=== PATIENT | female | born 2000 | race Caucasian/White ===

== ENCOUNTER 2023-01-10 18:37 | Emergency (ER) | payer OTHER, SELFPAY ==
[2023-01-10] VITALS (24 sets, daily range): BP systolic 112–123; BP diastolic 65–84; PULSE 85–124; RESP 18–20; TEMP 38.1–39; O2SAT 97–100; BMI 24.4
--- NOTE | 2023-01-10 18:50 | ED_ITS ---
HPI - Female Genitourinary General Time Seen by Provider: 18:50 Date Seen: 01/10/23 Chief complaint: Urogenital Problems, Female Stated complaint: Suspected kidney infection--fever, back pain Time Seen by Provider: 01/10/23 18:38 Source: patient, family and RN notes reviewed Mode of arrival: ambulatory Limitations: no limitations History of Present Illness HPI Narrative: Patient is a 22-year-old female accompanied by parents with concern of possible kidney infection/pyelonephritis. Patient had recent urinary tract infection and completed a 5 day course of Bactrim. She had dysuria, urinary frequency and urgency. By the end of the course of Bactrim, was still having the frequency urgency symptoms but the dysuria had gone away. She is at [employer], in pre season [employer]. She thought maybe she was just becoming overheated but noted today she was having some back pain, probably started yesterday. Fever maybe started after lunch. Her appetite has been diminished today but no vomiting, no nausea now. She has some lower abdominal pain and does go into the right flank area. Her mom is a physician and is present. She has had UTIs in the past that have responded to 3 day courses of Bactrim. Related Data Previous Rx's Medication Instructions Recorded ciprofloxacin HCl 500 mg tablet 500 mg PO BID #19 tabs 01/10/23 levofloxacin 500 mg tablet 500 mg PO DAILY #9 tabs 01/10/23 Allergies Allergy/AdvReac Type Severity Reaction Status Date / Time cefprozil [From Cefzil] Allergy Intermediate Rash Verified 01/10/23 19:16 Review of Systems Narrative: As per HPI. PFSH PFSH Social History Smoking Status: Never smoker Do you use any of these nicotine containing products: None Second hand tobacco smoke exposure: No How often do you have a drink containing alcohol: monthly or less AUDIT-C Alcohol total score: 1 Non-prescribed substance use: denies use service: No Exam Const: Vital Signs, click to edit/add: Vital Signs - 24 hr 01/10/23 18:45 01/10/23 18:57 01/10/23 19:38 Temperature 102.2 F H 102.2 F H Pulse Rate Pulse Rate [Pulse Oximeter] 124 H 111 H Respiratory Rate 18 20 Blood Pressure Blood Pressure [Ri ght Upper Arm] 119/74 123/84 Pulse Oximetry 97 100 Oxygen Delivery Me thod Room Air Room Air 01/10/23 19:57 01/10/23 19:58 01/10/23 20:00 Temperature 100.5 F H Pulse Rate 107 H 105 H Pulse Rate [Pulse Oximeter] Respiratory Rate Blood Pressure Blood Pressure [Ri ght Upper Arm] Pulse Oximetry 100 99 Oxygen Delivery Me thod 01/10/23 20:01 01/10/23 20:02 01/10/23 20:05 Temperature 100.5 F H Pulse Rate 106 H 105 H Pulse Rate [Pulse Oximeter] Respiratory Rate Blood Pressure 112/66 Blood Pressure [Ri ght Upper Arm] Pulse Oximetry 99 100 Oxygen Delivery Me thod 01/10/23 20:15 Temperature Pulse Rate 107 H Pulse Rate [Pulse Oximeter] Respiratory Rate Blood Pressure Blood Pressure [Ri ght Upper Arm] Pulse Oximetry 99 Oxygen Delivery Me thod 22-year-old female that is alert interac tive no apparent distress, able to speak in complete sentences. Very pleasant. Cheeks looked flushed but no rash noted. Pupils are equal and round, sclera clear, conjugate gaze. Neck is supple, no adenopathy noted. Lungs are clear with good air entry, no wheezing or crackles, no tachypnea noted. She has right CVA tenderness but no overlying skin changes. CV regular but fast, no murmur, normal S1 and S2, no S3 or S4. Abdomen is nondistended, normal bowel sounds, soft. Mild suprapubic tenderness with pain radiating up into the right flank area when palpating the suprapubic area. She has far right upper lateral abdominal pain without rebound or guarding. Skin is mina, note no rash on visualized areas. Documenting provider has reviewed patient's vital signs: yes Course Course Hospital Course: This patient is a 22-year-old female with fever in setting of recent urinary symptoms, right flank pain concerning for pyelonephritis. Will initiate an IV, give her L of fluids, plan on antibiotics and unfortunately she is allergic to Cefzil. Need to get full complement of labs including CBC and blood cultures. Discussed imaging with ultrasound versus CT with patient and her mom. They would like to proceed with CT imaging to ensure appropriate diagnosis and no other underlying pathology. We did discuss underlying risk of radiation with CT imaging. They understand would like to proceed. Confirm negative test as well. Urinalysis is already been collected, urine culture will be done. Will dose with 600 mg oral ibuprofen as she has not taken anything. Reevaluation(s) Time of Reevaluation #1: 20:16 Reevaluation #1: Just reviewed CT findings, normal white blood count with patient and her family. She has right pyelonephritis. CT report was given to mom whom did review it while I was there. She was able to eat and drink while here. We discussed medications. Given her cephalosporin allergy, fluoroquinolones with Cipro or Levaquin are what is next recommended for complicated UTI or pyelonephritis per up-to-date. They are aware of the risk of tendinopathy with this. Her mom had already looked this up, her mom understands the rationale for using this medicine however. With once a day dosing with Levaquin, will proceed with this. Of note, patient has the copper IUD. Time of Reevaluation #2: 20:39 Reevaluation #2: Did some research after I talked to them, question whether there might be increased tendinopathy associated with Levaquin versus Cipro. Mom thought there was not when I was in the room with them before. However, on further review of internet/nih, Cipro is increased risk of tendinitis over Levaquin but actual tendon rupture is shown to be increased with Levaquin. Will proceed with Cipro upon further discussion. The overall risk of tendon rupture with Cipro is listed to be 0.9 per 10,000 patients. Vital Signs Vital signs: Initial Vital Signs Temperature 102.2 F H 01/10/23 18:45 Temperature Source Temporal Artery Scan 01/10/23 18:45 Pulse Rate 124 H 01/10/23 18:45 Respiratory Rate 18 01/10/23 18:45 Blood Pressure 119/74 01/10/23 18:45 Blood Pressure Mean 89 01/10/23 18:45 Blood Pressure Position Sitting 01/10/23 18:45 Pulse Oximetry 97 01/10/23 18:45 Oxygen Delivery Method Room Air 01/10/23 18:45 Vital Signs Temperature 102.2 F H 01/10/23 18:45 Pulse Rate 124 H 01/10/23 18:45 Respiratory Rate 18 01/10/23 18:45 Blood Pressure 119/74 01/10/23 18:45 Pulse Oximetry 97 01/10/23 18:45 Oxygen Delivery Method Room Air 01/10/23 18:45 Temperature 100.5 F H 01/10/23 20:05 Pulse Rate 107 H 01/10/23 20:15 Respiratory Rate 20 01/10/23 19:38 Blood Pressure 112/66 01/10/23 20:01 Pulse Oximetry 99 01/10/23 20:15 Oxygen Delivery Method Room Air 01/10/23 19:38 MDM - Female Genitourinary Lab Data Attestation: I reviewed the patient's lab results. Labs: Lab Results 01/10/23 01/10/23 Range/Units 18:51 19:21 WBC 9.20 (4.50-11.00) K/uL RBC 4.05 (4.00-5.20) m/uL Hgb 12.2 (12.0-16.0) gm/dL Hct 36.9 (33.0-51.0) % MCV 91 (80-100) fL MCH 30 (26-34) pg MCHC 33 (32-36) gm/dL RDW Coeff of Chris 12.1 (11.5-15.5) % Plt Count 154 (140-440) K/uL Neut % (Auto) 81.5 H (42.0-72.0) % Lymph % (Auto) 9.7 L (20-44) % [place] % (Auto) 8.4 (0.0-11.0) % Eos % (Auto) 0.1 (0.0-7.0) % Baso % (Auto) 0.2 (0.0-3.0) % Neut # (Auto) 7.50 H (1.7-7.0) K/uL Lymph # (Auto) 0.90 (0.90-2.90) K/uL [place] # (Auto) 0.80 (0.00-0.90) K/UL Eos # (Auto) 0.01 (0.00-0.50) K/uL Baso # (Auto) 0.02 (0.00-0.30) K/uL Abs Immat Gran (auto) 0.01 (0.00-0.30) K/uL Imm/Tot Granulo (auto) 0.1 % Sodium 134 L (135-149) mmol/L Potassium 4.3 (3.6-5.1) mmol/L Chloride 104 (96-114) mmol/L Carbon Dioxide 23 (20-32) mmol/L Anion Gap 7 (7-15) mEq/L BUN 9 (5-24) mg/dL Creatinine 0.7 (0.5-1.5) mg/dL Estimated Creat Clear 132.86 Estimated GFR 126 ml/min Glucose 121 H (60-115) mg/dL Calcium 8.8 (8.4-10.6) mg/dL C-Reactive Protein 5.2 H (0.5-1.0) mg/dL Urine Color Yellow (Yellow) Urine Appearance Cloudy A (Clear) Urine pH 7.5 (5.0-8.5) Ur Specific [place] 1.015 (1.000-1.030) Urine Protein 2+ A (Negative) Urine Glucose (UA) Negative (Negative) Urine Ketones Negative (Negative) Urine Blood 2+ A (Negative) Urine Nitrite Negative (Negative) Urine Bilirubin Negative (Negative) Urine Urobilinogen 0.2 (0.2-1.0) Ur Leukocyte Esterase 1+ A (Negative) Urine RBC 0-2 (0-2) Urine WBC 10-25 A (0-5) Ur Squamous Epith Cells Few (None-Few) Urine Bacteria None (None) Urine HCG, Qual Negative (Negative) Imaging Data CT scan - abdomen: Attestation: I have reviewed the pertinent imaging results. Radiologist's impression: Patient: DIANE TOSCANO Facility:?[facility] Patient ID:?[id number] Site Patient ID:?[id number]. Site :?[id number] Study:?CT Abdomen/Pelvis W/81CC [id number]/23/2023 7:35:42 PM Ordering Physician:?Jacob Trejo Final Report: INDICATION: Fever. Right-sided abdominal pain. Recent history of dysuria. TECHNIQUE: Contrast-enhanced CT of the abdomen and pelvis. 81 cc nonionic Isovue-370 administered. COMPARISON: None. FINDINGS: There are CT changes compatible with right-sided pyelonephritis without abscess formation. There is enhancement of the urothelium of the right ureter compatible with infection or inflammation of the ureter as well. The urinary bladder is unremarkable. The liver, spleen, pancreas, both adrenal glands, and left kidney are normal. Largely contracted gallbladder. Normal caliber abdominal aorta and iliac arteries. Normal inferior vena cava. There is no evidence for bowel obstruction or ileus. Few fluid filled minimally distended small bowel loops in the lower abdomen, nonspecific. Normal appendix. No evidence for appendicitis or diverticular disease. The urinary bladder is unremarkable. Intrauterine device. Small follicle left ovary. 2.5 cm cyst right ovary. The included skeleton is within normal limits. 5 mm subpleural pulmonary nodule anterior right middle lobe of the lung image 1 series 2 of uncertain and probably doubtful clinical significance. IMPRESSION: 1. Right-sided pyelonephritis without abscess formation. Enhancement of the urothelium of the right ureter extending to the bladder consistent with i nfection. 2. No cystic or solid renal mass or stone. 3. Normal appendix. Largely contracted gallbladder. Intrauterine device. Physiologic right ovarian cyst. Please note that all CT scans at this facility use dose modulation, iterative reconstruction, and/or weight-based dosing when appropriate to reduce radiation dose to as low as reasonably achievable. Dictated by Satnam Abrams MD @ 01/10/2023 7:52:42 PM (Electronic Signature) Critical Care Time Critical Care Time Critical Care Time: No Discharge Plan Discharge Clinical Impression: Pyelonephritis Patient Disposition: Home, Self-Care Condition: Stable Instructions: Urinary Tract Infection in Women (ED), Kidney Infection (ED) Additional Instructions: Next dose of antibiotics is due tomorrow morning, this antibiotic will be taken twice daily. Can use Tylenol and ibuprofen per bottle directions as needed for discomfort or fever control. It is possible that you may run a fever for few days but overall you should be feeling slowly better than getting worse. If you are having worsening fevers, increasing pain, developed nausea and vomiting with this, do need to be re-evaluated. Recommend rest at least for the next couple of days, can slowly return back to your usual level of activity as you are feeling better. We will contact you should there be any need to change antibiotics once the urine culture result is back, expect this probably to be back Sunday. Otherwise, plan to check with Dr. Pate on Sunday. See if he has any thoughts on reduced rest secondary to the use of the Cipro. Activity Level: Activity as Tolerated Discharge Diet: Regular Prescriptions: New levofloxacin 500 mg tablet 500 mg PO DAILY Qty: 9 0RF ciprofloxacin HCl 500 mg tablet 500 mg PO BID Qty: 19 0RF Stand Alone Forms: [employer] Info Instructions
[2023-01-10] MEDS: IBUPROFEN 200 MG TABLET 600 MG PO (18:57)
[2023-01-10 18:58] LABS: Appearance Urine Cloudy (Clear); Bilirubin Urine Negative (Negative); Blood Urine 2+ (Negative); Color Urine Yellow (Yellow); Glucose Urine Negative (Negative); Ketones Urine Negative (Negative); Leukocyte Esterase Urine 1+ (Negative); Nitrite Urine Negative (Negative); Protein Urine 2+ (Negative); Specific Gravity Urine 1.015 (1.000-1.030); Urobilinogen Urine 0.2 (0.2-1.0); pH Urine 7.5 (5.0-8.5)
[2023-01-10 18:59] LABS: Ur HCG Qualitative* Negative (Negative)
--- NOTE | 2023-01-10 19:07 | CRLHL7_ITS ---
For Patients: As a result of the Cures Act, medical imaging exams and procedure reports are released immediately into your electronic medical record. You may view this report before your referring provider. If you have questions, please contact your health care provider. INDICATION: Fever. Right-sided abdominal pain. Recent history of dysuria. TECHNIQUE: Contrast-enhanced CT of the abdomen and pelvis. 81 cc nonionic Isovue-370 administered. COMPARISON: None. FINDINGS: There are CT changes compatible with right-sided pyelonephritis without abscess formation. There is enhancement of the urothelium of the right ureter compatible with infection or inflammation of the ureter as well. The urinary bladder is unremarkable. The liver, spleen, pancreas, both adrenal glands, and left kidney are normal. Largely contracted gallbladder. Normal caliber abdominal aorta and iliac arteries. Normal inferior vena cava. There is no evidence for bowel obstruction or ileus. Few fluid filled minimally distended small bowel loops in the lower abdomen, nonspecific. Normal appendix. No evidence for appendicitis or diverticular disease. The urinary bladder is unremarkable. Intrauterine device. Small follicle left ovary. 2.5 cm cyst right ovary. The included skeleton is within normal limits. 5 mm subpleural pulmonary nodule anterior right middle lobe of the lung image 1 series 2 of uncertain and probably doubtful clinical significance. IMPRESSION: 1. Right-sided pyelonephritis without abscess formation. Enhancement of the urothelium of the right ureter extending to the bladder consistent with infection. 2. No cystic or solid renal mass or stone. 3. Normal appendix. Largely contracted gallbladder. Intrauterine device. Physiologic right ovarian cyst. Please note that all CT scans at this facility use dose modulation, iterative reconstruction, and/or weight-based dosing when appropriate to reduce radiation dose to as low as reasonably achievable. Dictated by Satnam Abrams MD @ 01/10/2023 7:52:42 PM (Electronically Signed)
[2023-01-10 19:08] LABS: RBC Urine 0-2 (0-2); Squamous Epithelial Cell Urine Few (None-Few)
[2023-01-10 19:33] LABS: Basophils Absolute Auto 0.02 K/uL (0.00-0.30); Basophils Percent Auto 0.2 % (0.0-3.0); Eosinophils Absolute Auto 0.01 K/uL (0.00-0.50); Eosinophils Percent Auto 0.1 % (0.0-7.0); Hematocrit 36.9 % (33.0-51.0); Hemoglobin* 12.2 gm/dL (12.0-16.0); Immature Granulocytes Abs Auto 0.01 K/uL (0.00-0.30); Immature Granulocytes Pct Auto 0.1 %; Lymphocytes Percent Auto 9.7 % (20-44); Mean Corpuscular HGB Conc 33 gm/dL (32-36); Mean Corpuscular Hemoglobin 30 pg (26-34); Mean Corpuscular Volume 91 fL (80-100); Monocytes Percent Auto 8.4 % (0.0-11.0); Neutrophils Percent Auto 81.5 % (42.0-72.0); Platelet Count* 154 K/uL (140-440); RDW Coefficient of Variation % 12.1 % (11.5-15.5); Red Blood Count 4.05 m/uL (4.00-5.20)
[2023-01-10] MEDS: 0.9 % SODIUM CHLORIDE 1000 ml 1,000 ML IV (19:34)
[2023-01-10 19:35] LABS: Slide Review Reflex No
[2023-01-10 19:55] LABS: Chloride* 104 mmol/L (96-114); Potassium* 4.3 mmol/L (3.6-5.1); Sodium* 134 mmol/L (135-149)
[2023-01-10 19:58] LABS: Anion Gap 7 mEq/L (7-15); Blood Urea Nitrogen* 9 mg/dL (5-24); Carbon Dioxide* 23 mmol/L (20-32); Creatinine* 0.7 mg/dL (0.5-1.5); Est. Creatinine Clearance* 132.86; Estimated Glomerular Filt Rate 126 ml/min
[2023-01-10 19:59] LABS: Calcium* 8.8 mg/dL (8.4-10.6); Glucose* 121 mg/dL (60-115)
[2023-01-10 20:01] LABS: C Reactive Protein* 5.2 mg/dL (0.5-1.0)
[2023-01-10] MEDS: CIPROFLOXACIN 400 MG/200 ML PIGGYBACK 200 MG IVPB (20:50)
--- NOTE | 2023-01-10 22:17 | ED.NURSE ---
Denies pain on D/C. vitally stable. D/C packet given. IV removed.
== END 2023-01-10 22:15 | disposition home or self-care (01) ==
PROVIDERS: Emergency Provider Family Medicine
DX: N12 Tubulo-interstitial nephritis, not specified as acute or chronic (principal)
CPT/HCPCS: 36415; 74177; 80048; 81001; 81025; 85025; 86140; 87040; 87086; 87186; 96365; 96366; 99284; A9270; J0744; J7030; Q9967

== ENCOUNTER 2023-01-25 14:41 | Outpatient (CLI) | payer OTHER, SELFPAY | END 2023-01-25 14:42 | disposition home or self-care (01) | LOC: NFLDUCREF 14:43 | PROVIDERS: Visit Provider Registered Nurse | DX: R30.0 Dysuria (principal); Z87.440 Personal history of urinary (tract) infections | CPT/HCPCS: 87086 ==